=== PATIENT | female | born 1995 | race Caucasian/White ===

== ENCOUNTER 2024-01-30 03:56 | Emergency (ER) | payer OTHER, SELFPAY ==
[~2024-01-30] VITALS: Ht 167.6 cm; Wt 81.8 kg
[2024-01-30 04:31] LABS: BASO # 0.1 10^3/uL (0.0-0.2); BASO % 0.6 % (0.0-1.0); EOS # 0.3 10^3/uL (0.0-0.5); EOS % 2.7 % (0.0-3.0); HEMOGLOBIN 13.5 g/dl (12.0-15.5); LYMPH # 2.3 10^3/uL (1.5-5.0); LYMPH % 22.4 % (24.0-44.0); MEAN CORPUSCULAR HEMOGLOBIN 32.8 pg (27.0-33.0); MEAN CORPUSCULAR HGB CONC 33.8 g/dl (32.0-36.5); MEAN CORPUSCULAR VOLUME 97.3 fl (80.0-96.0); MONO # 0.9 10^3/uL (0.0-0.8); MONO % 8.6 % (2.0-8.0); NEUTROPHILS # 6.6 10^3/uL (1.5-8.5); NEUTROPHILS % 65.5 % (36.0-66.0); PLATELET COUNT, AUTOMATED 333 10^3/uL (150-450); RED BLOOD COUNT 4.11 10^6/uL (4.00-5.40); WHITE BLOOD COUNT 10.1 10^3/uL (4.0-10.0)
[2024-01-30 04:44] LABS: INR 1.01; PARTIAL THROMBOPLASTIN TIME 25.4 SECONDS (24.8-34.2)
[2024-01-30 04:58] LABS: BLOOD UREA NITROGEN 11 MG/DL (9-23); CALCIUM LEVEL 9.1 MG/DL (8.5-10.1); CARBON DIOXIDE LEVEL 28 MMOL/L (20-31); CHLORIDE LEVEL 104 MMOL/L (98-107); CREATININE FOR GFR 0.75 MG/DL (0.55-1.30); GLOMERULAR FILTRATION RATE > 60.0 (>60); GLUCOSE, FASTING 90 MG/DL (60-100); POTASSIUM SERUM 3.8 MMOL/L (3.5-5.1); SODIUM LEVEL 136 MMOL/L (136-145)
[2024-01-30 06:30] VITALS: BP 126/78
[2024-01-30 06:35] VITALS: TEMP 98.1; O2SAT 100
== END 2024-01-30 06:57 | disposition home or self-care (01) ==
LOC: EDBD 03:56 → M ED 03:56
DX: S70.311A Abrasion, right thigh, initial encounter (principal); S60.511A Abrasion of right hand, initial encounter; S60.512A Abrasion of left hand, initial encounter; F17.200 Nicotine dependence, unspecified, uncomplicated; V86.65XA Passenger of 3- or 4- wheeled all-terrain vehicle (ATV) injured in nontraffic accident, initial encounter; Z88.1 Allergy status to other antibiotic agents; Y92.410 Unspecified street and highway as the place of occurrence of the external cause; Y93.89 Activity, other specified; Y99.9 Unspecified external cause status
CPT/HCPCS: 36415; 70450; 70486; 71045; 72125; 80047; 80048; 85025; 85610; 85730; 99291; G0390

== ENCOUNTER 2025-05-23 04:58 | Emergency (ER) | payer OTHER, SELFPAY ==
[~2025-05-23] VITALS: Ht 167.6 cm; Wt 90.9 kg
[2025-05-23 05:00] VITALS: BP 132/91; TEMP 98; O2SAT 100
[2025-05-23] MEDS ORDERED: ACET-910 PO (05:03)
[2025-05-23] MEDS ORDERED: NAPR220C24 PO (05:08)
[2025-05-23] MEDS ORDERED: METR-265 PO (07:33)
[2025-05-23] MEDS ORDERED: KETO-204 PO (07:33)
[2025-05-23] MEDS ORDERED: LEVO75TAB PO (07:33)
[2025-05-23] MEDS: KETOROLAC TROMETHAMINE 10 MG TAB PO ONE (07:50)
== END 2025-05-23 08:30 | disposition home or self-care (01) ==
LOC: M ED 04:58
DX: K08.89 Other specified disorders of teeth and supporting structures (principal); K02.9 Dental caries, unspecified; Z88.1 Allergy status to other antibiotic agents; Z79.1 Long term (current) use of non-steroidal anti-inflammatories (NSAID); Z79.899 Other long term (current) drug therapy